=== PATIENT | male | born 1950 | race Caucasian/White ===

== ENCOUNTER 2018-07-22 08:20 | Emergency (ER) | payer MEDICARE ==
[2018-07-22 09:02] LABS: Influenza A Molecular NEGATIVE (Negative); Influenza B Molecular NEGATIVE (Negative)
[2018-07-22 10:04] VITALS: BP 114/73
--- NOTE | 2018-07-22 13:50 | ED ---
Respiratory - HPI Summary HPI Summary: Patient is a 68-year-old male who is otherwise healthy and takes no medications presenting to the ED with cough and fever 2 days. He states the fever has been present 2 days running at approximately 102. He is also had a cough with a small amount of production which is white and clear. Denies any rhinorrhea, headache, visual changes. Denies any shortness of breath. He does have a history of COPD. He quit smoking 1.5 years ago and smoked 2 packs per week 50 years. He endorses daily alcohol use. He is also endorsing some diffuse body aches, but denies any diaphoresis, shakes or chills. He denies any known sick contacts or recent travel. - History of Current Complaint Chief Complaint: EDUpperRespComplaint Stated Complaint: FEVER COUGH NOT SLEEPING WELL FOR DAYS PER PT Time Seen by Provider: 07/22/18 08:30 Hx Obtained From: Patient Onset/Duration: Sudden Onset Timing: Constant Initial Severity: Mild Current Severity: Mild Pain Intensity: 3 Character: Cough (Productive) Sputum Amount: Moderate Sputum Color: White Aggravating Factor(s): Nothing Alleviating Factor(s): Nothing Associated Signs and Symptoms: Fever - Allergy/Home Medications Allergies/Adverse Reactions: Allergies Allergy/AdvReac Type Severity Reaction Status Date / Time No Known Allergies Allergy Verified 07/22/18 08:22 Home Medications: Home Medications Budesonide/Formote 160/4.5(NF) [Symbicort 160/4.5 (NF)] 2 puff INH BID 07/22/18 [History Confirmed 07/22/18] diphenhydrAMINE HCl [Diphenhydramine HCl] 1 cap PO DAILY PRN 07/22/18 [History Confirmed 07/22/18] PMH/Surg Hx/FS Hx/Imm Hx Previously Healthy: Yes Respiratory History: Reports: Hx Chronic Obstructive Pulmonary Disease (COPD), Other Respiratory Problems/Disorders - RT LOWER POSTERIOR RIB FX - Immunization History Hx Pertussis Vaccination: No Immunizations Up to Date: Yes Infectious Disease History: No Infectious Disease History: Denies: Traveled Outside the [place] in Last 30 Days - Social History Occupation: Unemployed Lives: With Family Alcohol Use: Daily Alcohol Amount: whiskey 3x daily Hx Substance Use: No Substance Use Type: Reports: None Hx Tobacco Use: Yes Smoking Status (MU): Former Smoker Review of Systems Constitutional: Negative Negative: Fever, Chills, Fatigue, Skin Diaphoresis Negative: Chest Pain Positive: Cough Genitourinary: Negative Positive: no symptoms reported, see HPI Negative: Arthralgia, Myalgia Neurological: Negative All Other Systems Reviewed And Are Negative: Yes Physical Exam Triage Information Reviewed: Yes Vital Signs On Initial Exam: Initial Vitals Temp Pulse Resp BP Pulse Ox 98 F 102 22 111/78 92 07/22/18 08:23 07/22/18 08:23 07/22/18 08:23 07/22/18 08:23 07/22/18 08:23 Vital Signs Reviewed: Yes Appearance: Positive: Well-Appearing, Well-Nourished Skin: Positive: Warm, Skin Color Reflects Adequate Perfusion Head/Face: Positive: Normal Head/Face Inspection Eyes: Positive: EOMI, EDUARDO, Conjunctiva Clear Respiratory/Lung Sounds: Positive: Rhonchi - bilateral Cardiovascular: Positive: RRR, Pulses are Symmetrical in both Upper and Lower Extremities Musculoskeletal: Positive: Normal, Strength/ROM Intact Neurological: Positive: Speech Normal Psychiatric: Positive: Affect/Mood Appropriate AVPU Assessment: Alert Diagnostics - Vital Signs Vital Signs Temp Pulse Resp BP Pulse Ox 07/22/18 10:09 98.3 F 78 19 114/73 94 07/22/18 10:03 79 19 114/73 94 07/22/18 10:00 78 16 94 07/22/18 09:34 75 20 119/81 94 07/22/18 09:03 119/77 07/22/18 09:00 92 18 95 07/22/18 08:33 97 20 138/90 94 07/22/18 08:32 111 8 93 07/22/18 08:23 98 F 102 22 111/78 92 - Laboratory Lab Results: Lab Results 07/22/18 Range/Units 08:37 Influenza A (Rapid) Negative (Negative) Influenza B (Rapid) Negative (Negative) Lab Statement: Any lab studies that have been ordered have been reviewed, and results considered in the medical decision making process. Disposition - Course Course Of Treatment: Physical examination, patient appears well and nontoxic appearing. Discussed treatment options with patient on arrival as he remains afebrile with no obvious SOB. Chest x-ray as well as influenza swab obtained. Both of which were negative. This patient has some bilateral diffuse rhonchorous sounds throughout, as well as the fever, he will be given a prescription for azithromycin. He is also given an albuterol inhaler. He will return to the ED if he develops any worsening or changing symptoms. He understands return precautions. - Differential Dx - Cardiopulmonary Differential Diagnoses - Cardiopulmonary: Other - Viral syndrome, pneumonia, bronchitis, COPD, acute cough - Diagnoses Provider Diagnoses: Bronchitis Discharge - Sign-Out/Discharge Documenting (check all that apply): Patient Departure Patient Received Moderate/Deep Sedation with Procedure: No - Discharge Plan Condition: Stable Disposition: HOME Prescriptions: Albuterol HFA INHALER* [Ventolin HFA Inhaler*] 1 puff INH Q4H PRN #1 mdi PRN Reason: Shortness Of Breath Azithromycin TAB* [Zithromax TAB (Z-LILI) 250 mg #6 tabs] 2 tab PO .TODAY, THEN 1 DAILY #1 lili Patient Education Materials: Acute Bronchitis (ED), Shortness of Breath (ED) Referrals: Ayaz Villatoro MD [Primary Care Provider] - Additional Instructions: azithromycin - 2 tabs today followed by 1 tab everyday x 4 days Albuterol inhaler as needed Tylenol and ibuprofen intermittently every 3 hours while awake for fevers, body aches and chills You likely have a bronchitis, but may have a viral syndrome as well Rest as much as possible for a few days If symptoms worsen, return to the ED - Billing Disposition and Condition Condition: STABLE Disposition: Home
== END 2018-07-22 10:09 | disposition home or self-care (01) ==
LOC: ED 08:20
DX: J40 Bronchitis, not specified as acute or chronic (principal); J44.9 Chronic obstructive pulmonary disease, unspecified; Z87.891 Personal history of nicotine dependence
CPT/HCPCS: 71046; 99283

== ENCOUNTER 2023-06-29 10:11 | Observation (INO) ==
[2023-06-29 11:30] LABS: ABS Lymphocytes 0.9 10^3/uL (1.0-4.8); ABS Monocytes 0.9 10^3/uL (0.0-1.1); ABS Neutrophils 5.5 10^3/uL (1.5-7.6); Hematocrit 35.6 % (38-53); Hemoglobin 12.6 g/dL (13.2-16.3); Lymphocyte % 11.7 %; Mean Corpuscular Hemoglobin 36.6 pg (27-33); Mean Corpuscular Hgb Conc 35.4 g/dL (31-36); Mean Corpuscular Volume 103.5 fL (80-97); Mean Platelet Volume 8.6 fL (7.5-11.2); Platelet Count 169 10^3/uL (150-450); Red Blood Count 3.44 10^6/uL (4.06-5.63); Red Cell Distribution Width 12.2 % (12-17); White Blood Count 7.3 10^3/uL (3.6-10.2)
[2023-06-29 11:45] LABS: INR 1.25 (0.83-1.13)
[2023-06-29 11:54] LABS: High Sens Troponin Baseline 9 pg/mL (<20)
[2023-06-29] MEDS: Lactated Ringers 1000 ml BAG 1,000 ML IV ONE (12:19)
[2023-06-29 12:48] LABS: ALT 34 U/L (7-52); AST 75 U/L (13-39); Albumin 3.7 g/dL (3.2-5.2); Albumin/Globulin Ratio 1.2 (1-3); Alcohol, S < 13 mg/dL (<13); Alkaline Phosphatase 88 U/L (35-149); Anion Gap 12 mmol/L (2-16); Blood Urea Nitrogen 14 mg/dL (6-24); C Reactive Protein 57.43 mg/L (<8.01); CO2 Carbon Dioxide 24 mmol/L (22-32); Calcium 8.5 mg/dL (8.6-10.3); Chloride 100 mmol/L (101-111); Creatinine, Serum 0.86 mg/dL (0.67-1.17); Glucose 133 mg/dL (70-100); Potassium 3.7 mmol/L (3.5-5.0); Sodium 136 mmol/L (135-145); Total Bilirubin 1.9 mg/dL (0.2-1.0); Total Protein 6.7 g/dL (6.4-8.9); eGFR CKD-EPI 90.3 (>60)
[2023-06-29 12:52] LABS: High Sensitivity Troponin 1 Hr 7 pg/mL (<20)
[2023-06-29] MEDS: Magnesium Sulf 4 GM/100 ML IV 4,000 MG/100 ML BAG IVPB ONE (13:33)
[2023-06-29] MEDS: Iohexol 350 (CONTRAST) 500 ML MDV IV ONE (13:55)
[2023-06-29 14:28] LABS: Urine Appearance Clear; Urine Bilirubin 1+ (Negative); Urine Blood Negative (Negative); Urine Glucose Negative (Negative); Urine Ketones Trace (Negative); Urine Nitrite Negative (Negative); Urine Protein Trace (Negative); Urine Urobilinogen 1+ (Negative); Urine pH 6.5 (5.0-8.0)
[2023-06-29 14:48] LABS: Urine Color Amber
[2023-06-29 15:14] LABS: Urine Benzodiazepine Screen None Detected (None Detect); Urine Cannabinoids Screen None Detected (None Detect); Urine Opiates Screen None Detected (None Detect)
[2023-06-29] MEDS: Thiamine 100 MG/ML 2 ml VIAL 100 MG, Folic Acid IV 1 MG, Multiple Vitamin IV ADULT 10 M... IV ONE (18:20)
[2023-06-29] MEDS: Enoxaparin 40 MG/0.4 ML SYR SUBCUT SCH (18:21)
[2023-06-29] MEDS: Thiamine 100 MG/ML 2 ml VIAL 500 MG in NS 0.9% 250 ml 250 ML IV SCH (22:49)
[2023-06-30 06:02] LABS: Hematocrit 31.1 % (38-53); Hemoglobin 11.1 g/dL (13.2-16.3); Mean Corpuscular Hgb Conc 35.6 g/dL (31-36); Mean Corpuscular Volume 103.9 fL (80-97); Platelet Count 145 10^3/uL (150-450); Red Cell Distribution Width 11.9 % (12-17); White Blood Count 5.6 10^3/uL (3.6-10.2)
[2023-06-30 06:20] LABS: Calcium 7.7 mg/dL (8.6-10.3); Creatinine, Serum 0.67 mg/dL (0.67-1.17); Magnesium 1.7 mg/dL (1.9-2.7); Potassium 3.8 mmol/L (3.5-5.0); eGFR CKD-EPI 97.4 (>60)
[2023-06-30] MEDS: Multivitamins/Minerals TAB PO SCH (08:05)
[2023-06-30] MEDS: Magnesium Sulfate 2 gm BAG 2 GM/50 ML BAG IVPB ONE (08:06)
[2023-06-30] MEDS ORDERED: Magnesium Sulf 4 GM/100 ML IV 4,000 MG/100 ML BAG IVPB ONE (08:36)
[2023-06-30 08:53] LABS: Phosphorus 3.1 mg/dL (2.5-5.0)
[2023-06-30] MEDS: Magnesium Sulfate IV 1GM/100ML 1 GM/100 ML BAG IV ONE (09:39)
[2023-06-30 13:07] VITALS: BP 132/76
== END 2023-06-30 14:50 | disposition home or self-care (01) ==
LOC: EDHOLD 10:11 → ED 10:11 → MED 17:57
PROVIDERS: ADMIT Student in an Organized Health Care Education/Training Program; ATTEND Student in an Organized Health Care Education/Training Program